=== PATIENT | female | born 2000 | race African-American/Black ===

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

== ENCOUNTER 2018-03-06 16:05 | Emergency (ER) | payer OTHER ==
[2018-03-06] MEDS ORDERED: NS 0.9% 1000 ML* 1,000 ML IV ONE (17:55)
[2018-03-06] MEDS ORDERED: Morphine VIAL* 10 MG/ML 1 ML VIAL IV ONE (17:55)
[2018-03-06] MEDS ORDERED: Ondansetron INJ* 2 MG/ML VIAL IV ONE (17:55)
[2018-03-06 18:04] LABS: ABS Basophils 0 10^3/ul (0-0.2); ABS Eosinophils 0.1 10^3/ul (0-0.6); ABS Lymphocytes 2.4 10^3/ul (1.0-4.8); ABS Monocytes 0.5 10^3/ul (0-0.8); ABS Neutrophils 4.5 10^3/ul (1.5-7.7); ABS Nucleated RBC 0 10^3/ul; Eosinophil % 1.1 % (0-6); Hematocrit 37 % (35-47); Hemoglobin 12.3 g/dl (12.0-16.0); Lymphocyte % 31.7 % (25-47); Mean Corpuscular HGB Conc 33 g/dl (31-36); Mean Corpuscular Hemoglobin 30 pg (27-31); Mean Corpuscular Volume 90 fL (80-97); Nucleated Red Blood Cells % 0; Platelet Count 193 10^3/ul (150-450); Red Blood Count 4.16 10^6/ul (4.00-5.40); Red Cell Distribution Width 14 % (10.5-15); White Blood Count 7.6 10^3/ul (3.5-10.8)
[2018-03-06] MEDS ORDERED: Morphine INJ* 4 MG/ML 1 ML SYRINGE (NEW SYRINGE VERSION) ONE (18:05)
[2018-03-06 18:21] LABS: EGFR Non-African American 80.7 (>60)
[2018-03-06] MEDS ORDERED: Iohexol 300* (CONTRAST) 10 ML SDV IV ONE (18:29)
--- NOTE | 2018-03-06 19:42 | RAD ---
EXAM: CT Abdomen and Pelvis With Intravenous Contrast CLINICAL HISTORY: 17 years old, female; Pain; Abdominal pain; Epigastric; Additional info: Epigastric pain, elevated panc enzymes TECHNIQUE: Axial computed tomography images of the abdomen and pelvis with intravenous contrast. All CT scans at this facility use at least one of these dose optimization techniques: automated exposure control; mA and/or kV adjustment per patient size (includes targeted exams where dose is matched to clinical indication); or iterative reconstruction. Coronal and sagittal reformatted images were created and reviewed. CONTRAST: 79 mL of OMNIPAQUE 300 administered intravenously. COMPARISON: No relevant prior studies available. FINDINGS: Lung bases: There is mild bibasilar atelectatic change or scarring. ABDOMEN: Liver: There is mild hepatomegaly. Gallbladder and bile ducts: Unremarkable. No calcified stones. No ductal dilation. Pancreas: Unremarkable. No mass. No ductal dilation. Spleen: Unremarkable. No splenomegaly. Adrenals: Unremarkable. No mass. Kidneys and ureters: Unremarkable. No solid mass. No hydronephrosis. Stomach and bowel: Unremarkable. No obstruction. No mucosal thickening. PELVIS: Appendix: The appendix is unremarkable and seen best on axial image 52 of series 2. Bladder: Unremarkable. No mass. Reproductive: There is a 2 cm involuting follicle or cyst of the right ovary. ABDOMEN and PELVIS: Intraperitoneal space: Unremarkable. No free air. No significant fluid collection. Bones/joints: No acute fracture. No dislocation. Soft tissues: Unremarkable. Vasculature: Unremarkable. No abdominal aortic aneurysm. Lymph nodes: Unremarkable. No enlarged lymph nodes. IMPRESSION: 1. There is a 2 cm involuting follicle or cyst of the right ovary. 2. No other acute CT pathology.
--- NOTE | 2018-03-06 19:56 | ED ---
Abdominal Pain/Female - HPI Summary HPI Summary: Patient complains of diffuse abdominal pain worse at epigastrium and right upper quadrant times one year. Pain has been progressive, radiates to lower back, occurs a few times a week, is worse after meals often, accompanied by nausea, and alternating constipation and diarrhea. Patient states she had elevated pancreatic enzymes on recent blood work done at [facility]. States previously diagnosed with IBS. Denies fever, cough, sore throat, CP, N /V/D, change in urine, vaginal symptoms. Medical history is none. Abdominal/ pelvic surgical history is none. Nonsmoker, denies regular EtOH, recreational drugs. - History of Current Complaint Chief Complaint: EDAbdPain Stated Complaint: ABD PAIN Time Seen by Provider: 03/06/18 17:28 Hx Obtained From: Patient ?: No Onset/Duration: Gradual Onset, Lasting Weeks Timing: Intermittent Episode Lasting Severity Initially: Mild Severity Currently: Mild Pain Intensity: 2 Pain Scale Used: 0-10 Numeric Location: Diffuse, Epigastric Radiates to: Back Aggravating Factor(s): Food Alleviating Factor(s): Nothing Associated Signs and Symptoms: Positive: Back Pain, Nausea Allergies/Adverse Reactions: Allergies Allergy/AdvReac Type Severity Reaction Status Date / Time No Known Allergies Allergy Verified 03/06/18 17:32 PMH/Surg Hx/FS Hx/Imm Hx Endocrine/Hematology History: Denies: Hx Anticoagulant Therapy, Hx Diabetes Cardiovascular History: Denies: Hx Hypertension Respiratory History: Denies: Hx Asthma Psychiatric History: Reports: Hx Anxiety, Hx Depression - Surgical History Surgery Procedure, Year, and Place: none - Immunization History Immunizations Up to Date: Yes Infectious Disease History: No Infectious Disease History: Denies: Traveled Outside the [place] in Last 30 Days - Family History Known Family History: Positive: None - Social History Alcohol Use: None Substance Use Type: Reports: None Smoking Status (MU): Never Smoked Tobacco Review of Systems Constitutional: Negative Eyes: Negative ENT: Negative Cardiovascular: Negative Respiratory: Negative Positive: Abdominal Pain, Nausea Genitourinary: Negative Skin: Negative Neurological: Negative Psychological: Normal All Other Systems Reviewed And Are Negative: Yes Physical Exam - Summary Physical Exam Summary: Abdomen diffusely tender. No right lower quadrant tenderness. Triage Information Reviewed: Yes Vital Signs On Initial Exam: Initial Vitals Temp Pulse Resp BP Pulse Ox 97.2 F 80 16 108/64 100 03/06/18 16:41 03/06/18 16:41 03/06/18 16:41 03/06/18 16:41 03/06/18 16:41 Vital Signs Reviewed: Yes Appearance: Positive: Well-Appearing Skin: Positive: Warm Head/Face: Positive: Normal Head/Face Inspection Neck: Positive: Supple Respiratory/Lung Sounds: Positive: Clear to Auscultation Cardiovascular: Positive: Normal Abdomen Description: Positive: Other: Musculoskeletal: Positive: Normal Neurological: Positive: Normal Psychiatric: Positive: Normal AVPU Assessment: Alert - [place] Coma Scale Best Eye Response: 4 - Spontaneous Best Motor Response: 6 - Obeys Commands Best Verbal Response: 5 - Oriented Coma Scale Total: 15 Diagnostics - Vital Signs Vital Signs Temp Pulse Resp BP Pulse Ox 03/06/18 18:15 16 03/06/18 16:41 97.2 F 80 16 100 - Laboratory Lab Results: Lab Results 03/06/18 03/06/18 03/06/18 Range/Units 17:58 17:58 17:58 WBC 7.6 (3.5-10.8) 10^3/ul RBC 4.16 (4.00-5.40) 10^6/ul Hgb 12.3 (12.0-16.0) g/dl Hct 37 (35-47) % MCV 90 (80-97) fL MCH 30 (27-31) pg MCHC 33 (31-36) g/dl RDW 14 (10.5-15) % Plt Count 193 (150-450) 10^3/ul MPV 8.0 (7.4-10.4) um3 Neut % (Auto) 59.9 (38-83) % Lymph % (Auto) 31.7 (25-47) % Terry % (Auto) 7.1 H (0-7) % Eos % (Auto) 1.1 (0-6) % Baso % (Auto) 0.2 (0-2) % Absolute Neuts (auto) 4.5 (1.5-7.7) 10^3/ul Absolute Lymphs (auto) 2.4 (1.0-4.8) 10^3/ul Absolute Monos (auto) 0.5 (0-0.8) 10^3/ul Absolute Eos (auto) 0.1 (0-0.6) 10^3/ul Absolute Basos (auto) 0 (0-0.2) 10^3/ul Absolute Nucleated RBC 0 10^3/ul Nucleated RBC % 0 Sodium 138 (135-145) mmol/L Potassium 4.3 (3.5-5.0) mmol/L Chloride 108 (101-111) mmol/L Carbon Dioxide 27 (22-32) mmol/L Anion Gap 3 (2-11) mmol/L BUN 12 (6-24) mg/dL Creatinine 0.90 (0.51-0.95) mg/dL Est GFR ( Amer) 97.6 (>60) Est GFR (Non-Af Amer) 80.7 (>60) BUN/Creatinine Ratio 13.3 (8-20) Glucose 96 (70-100) mg/dL Lactic Acid 0.6 (0.5-2.0) mmol/L Calcium 9.3 (8.6-10.3) mg/dL Total Bilirubin 0.30 (0.2-1.0) mg/dL AST 15 (13-39) U/L ALT 11 (7-52) U/L Alkaline Phosphatase 36 (34-104) U/L C-Reactive Protein < 1.00 (<8.01) mg/L Total Protein 7.1 (6.4-8.9) g/dL Albumin 4.1 (3.2-5.2) g/dL Globulin 3.0 (2-4) g/dL Albumin/Globulin Ratio 1.4 (1-3) Lipase 48 (11.0-82.0) U/L Beta HCG, Quant < 0.60 mIU/mL Result Diagrams: 03/06/18 17:58 03/06/18 17:58 Lab Statement: Any lab studies that have been ordered have been reviewed, and results considered in the medical decision making process. - CT ab/pel CT Interpretation: No Acute Changes CT Interpretation Completed By: Radiologist - Ultrasound No standard instances Ultrasound Interpretation: No Acute Changes - US gallbladder Ultrasound Interpretation Completed By: Radiologist Abdominal Pain Fem Course/Dx - Course Course Of Treatment: Patient complains of diffuse abdominal pain worse at epigastrium and right upper quadrant times one year. Pain has been progressive , radiates to lower back, occurs a few times a week, is worse after meals often , accompanied by nausea, and alternating constipation and diarrhea. Patient states she had elevated pancreatic enzymes on recent blood work done at [facility]. States previously diagnosed with IBS. Denies fever, cough, sore throat, CP, N/V/D, change in urine, vaginal symptoms. Medical history is none. Abdominal/pelvic surgical history is none. Nonsmoker, denies regular EtOH, recreational drugs. Physical exam: Abdomen diffusely tender. No right lower quadrant tenderness. CT abdomen with contrast negative. Gallbladder ultrasound negative. Labs unremarkable. Vital signs within normal limits. Possible gastritis versus IBS. Rx for Prilosec. Follow up with GI. - Diagnoses Provider Diagnoses: Abdominal pain Discharge - Sign-Out/Discharge Documenting (check all that apply): Patient Departure - Discharge Plan Condition: Stable Disposition: HOME Prescriptions: Omeprazole CAP* [Prilosec CAP* 20 MG] 20 mg PO DAILY 60 Days #60 Patient Education Materials: Irritable Bowel Syndrome (ED), Chronic Abdominal Pain (ED) Referrals: No Primary Care Phys,NOPCP [Primary Care Provider] - Umair Novoa MD [Medical Doctor] - Additional Instructions: Take Prilosec daily. If symptoms do not improve after a month follow-up with GI Dr. Pacheco. Return to the ED for any new or worsening symptoms - Billing Disposition and Condition Condition: STABLE Disposition: Home
[2018-03-06 20:02] LABS: Urine Appearance Clear; Urine Blood Negative (Negative); Urine Color Yellow; Urine Ketones Negative (Negative); Urine Protein Negative (Negative); Urine Specific Gravity 1.017 (1.010-1.030); Urine Urobilinogen Negative (Negative)
[2018-03-06 20:03] LABS: Urine Red Blood Cell Absent (Absent); Urine White Blood Cell Trace(0-5/hpf) (Absent)
--- NOTE | 2018-03-06 20:06 | RAD ---
EXAM: US Abdomen Limited, Right Upper Quadrant CLINICAL HISTORY: 17 years old, female; Pain; Abdominal pain; Epigastric; Additional info: Epigastric, ruq pain after meals TECHNIQUE: Real-time ultrasound of the right upper quadrant with image documentation. COMPARISON: A/P W CT ABD/PEL W 03/06/2018 7:03 PM FINDINGS: Liver: There is borderline hepatomegaly with liver length 17.0 cm with normal antegrade flow in the hepatic portal vein and no mass lesion. No intrahepatic bile duct dilation. Gallbladder: Unremarkable. No gallstones. Negative sonographic Arriaga's sign. Common bile duct: Unremarkable as visualized. No stones. No dilation. Pancreas: The visualized portion of the pancreas is unremarkable with detail obscured by overlying bowel gas. Right kidney: Unremarkable. No stones. No solid mass. No hydronephrosis. IMPRESSION: No acute findings.
[2018-03-06] MEDS ORDERED: Omeprazole CAP* 20 MG PO ONE (20:18)
[2018-03-06 20:22] VITALS: BP 118/77
[2018-03-06] MEDS ORDERED: Lidocaine 2% VISCOUS* 15 ML UDC PO ONE (20:26)
[2018-03-06] MEDS ORDERED: Al Hydrox/Mg Hydrox/Simet LIQ* 30 ML UDC PO ONE (20:27)
== END 2018-03-06 20:45 | disposition home or self-care (01) ==
LOC: ED 16:05
DX: R10.9 Unspecified abdominal pain (principal); M54.9 Dorsalgia, unspecified; R11.0 Nausea
CPT/HCPCS: 36415; 74177; 76705; 80053; 81003; 81015; 82150; 83605; 83690; 84702; 85025; 86140; 87086; 96374; 96375; 99283; A9270-GY; J2270; J2405; Q9967

== ENCOUNTER → 2018-07-07 09:14 | Emergency (ER) | payer OTHER ==
[~2018-07-07 09:14] MED LIST: Ibuprofen TAB* 600 MG PO ONE
[2018-07-07 10:58] LABS: ALT 16 U/L (7-52); AST 20 U/L (13-39); Albumin 4.4 g/dL (3.2-5.2); Albumin/Globulin Ratio 1.4 (1-3); Alkaline Phosphatase 46 U/L (34-104); Anion Gap 5 mmol/L (2-11); BUN/Creatinine Ratio 14.3 (8-20); Blood Urea Nitrogen 13 mg/dL (6-24); C Reactive Protein < 1.00 mg/L (<8.01); CO2 Carbon Dioxide 27 mmol/L (22-32); Calcium 9.7 mg/dL (8.6-10.3); Chloride 107 mmol/L (101-111); EGFR African American 96.4 (>60); EGFR Non-African American 79.6 (>60); Globulin 3.1 g/dL (2-4); Glucose 93 mg/dL (70-100); Sodium 139 mmol/L (135-145); Total Protein 7.5 g/dL (6.4-8.9)
[2018-07-07 11:01] LABS: ABS Basophils 0 10^3/ul (0-0.2); ABS Eosinophils 0 10^3/ul (0-0.6); ABS Lymphocytes 1.3 10^3/ul (1.0-4.8); ABS Monocytes 0.2 10^3/ul (0-0.8); ABS Neutrophils 1.3 10^3/ul (1.5-7.7); ABS Nucleated RBC 0 10^3/ul; Eosinophil % 0.8 %; Hematocrit 37 % (35-47); Hemoglobin 11.9 g/dl (12.0-16.0); Mean Corpuscular HGB Conc 32 g/dl (31-36); Mean Corpuscular Hemoglobin 28 pg (27-31); Mean Corpuscular Volume 88 fL (80-97); Mean Platelet Volume 8.2 fL (7.4-10.4); Nucleated Red Blood Cells % 0; Platelet Count 151 10^3/ul (150-450); Red Blood Count 4.23 10^6/ul (4.00-5.40); Red Cell Distribution Width 14 % (10.5-15); White Blood Count 2.9 10^3/ul (3.5-10.8)
[2018-07-07 11:04] LABS: HCG Pregnancy < 0.60 mIU/mL
--- NOTE | 2018-07-07 14:39 | ED ---
HPI Chest Pain - HPI Summary HPI Summary: A 17 y/o female presents to the ED c/o chest pain since she woke up this morning. According to the patient, when she got out of bed, she felt "paralyzed " and cramping sensation in her chest and upper back. Sometimes she would feel some sharp pains. She stated that it was difficult to breath and taking deep breaths aggravated the symptoms. She stated that she feels much better, but feels sore as if she vomited. She denies any fevers, chills, vomiting, nausea, or any recent URI infections. PMHx of asthma, but no cardiac issues. - History of Current Complaint Chief Complaint: EDChestPainROMI Time Seen by Provider: 07/07/18 14:30 Hx Obtained From: Patient Onset/Duration: Started Hours Ago, Still Present Timing: Constant Initial Severity: Moderate Current Severity: Moderate Pain Intensity: 6 Pain Scale Used: 0-10 Numeric Chest Pain Location: Diffuse Chest Pain Radiates: Yes Chest Pain Radiates To:: Back Character: Sharp/Stabbing, Tightness Aggravating Factor(s): Deep Breaths Alleviating Factor(s): Nothing Associated Signs and Symptoms: Positive: Chest Pain, Shortness of Breath. Negative: Fever, Chills, Nausea, Vomiting, URI - Allergy/Home Medications Allergies/Adverse Reactions: Allergies Allergy/AdvReac Type Severity Reaction Status Date / Time No Known Allergies Allergy Verified 07/07/18 09:18 Home Medications: Home Medications busPIRone TAB* [Buspar TAB*] 5 mg PO DAILY 07/07/18 [History Confirmed 07/07/18] PMH/Surg Hx/FS Hx/Imm Hx Endocrine/Hematology History: Denies: Hx Anticoagulant Therapy, Hx Diabetes Cardiovascular History: Denies: Hx Congestive Heart Failure, Hx Hypertension Respiratory History: Reports: Hx Asthma Psychiatric History: Reports: Hx Anxiety, Hx Depression - Surgical History Surgery Procedure, Year, and Place: TONSILLECTOMY Infectious Disease History: No Infectious Disease History: Denies: Traveled Outside the [place] in Last 30 Days - Family History Known Family History: Negative: Hypertension, Diabetes - Social History Alcohol Use: None Substance Use Type: Reports: None Hx Tobacco Use: No Smoking Status (MU): Never Smoked Tobacco Review of Systems Negative: Fever, Chills Positive: Chest Pain Positive: Shortness Of Breath Negative: Vomiting, Nausea Positive: Other - POSITIVE: BACK PAIN All Other Systems Reviewed And Are Negative: Yes Physical Exam - Summary Physical Exam Summary: VITAL SIGNS: Reviewed. GENERAL: Patient is a well-developed and nourished female who is lying comfortable in the stretcher. Patient is not in any acute respiratory distress. HEAD AND FACE: No signs of trauma. No ecchymosis, hematomas or skull depressions. No sinus tenderness. EYES: PERRLA, EOMI x 2, No injected conjunctiva, no nystagmus. EARS: Hearing grossly intact. Ear canals and tympanic membranes are within normal limits. MOUTH: Oropharynx within normal limits. NECK: Supple, trachea is midline, no adenopathy, no JVD, no carotid bruit, no c- spine tenderness, neck with full ROM. CHEST: Symmetric, reproducible chest pain on the right side. LUNGS: Clear to auscultation bilaterally. No wheezing or crackles. CVS: Regular rate and rhythm, S1 and S2 present, no murmurs or gallops appreciated. ABDOMEN: Soft, non-tender. No signs of distention. No rebound no guarding, and no masses palpated. Bowel sounds are normal. EXTREMITIES: FROM in all major joints, no edema, no cyanosis or clubbing. NEURO: Alert and oriented x 3. No acute neurological deficits. Speech is normal and follows commands. SKIN: Dry and warm Triage Information Reviewed: Yes Vital Signs On Initial Exam: Initial Vitals Temp Pulse Resp BP Pulse Ox 97.1 F 70 16 136/93 97 07/07/18 09:16 07/07/18 09:16 07/07/18 09:16 07/07/18 09:16 07/07/18 09:16 Vital Signs Reviewed: Yes Diagnostics - Vital Signs Vital Signs Temp Pulse Resp BP Pulse Ox 07/07/18 12:44 98.5 F 59 16 120/73 99 07/07/18 11:47 98.5 F 58 16 126/72 100 07/07/18 09:16 97.1 F 70 16 136/93 97 - Laboratory Lab Results: Lab Results 07/07/18 07/07/18 07/07/18 Range/Units 09:37 09:37 12:19 WBC 2.9 L (3.5-10.8) 10^3/ul RBC 4.23 (4.00-5.40) 10^6/ul Hgb 11.9 L (12.0-16.0) g/dl Hct 37 (35-47) % MCV 88 (80-97) fL MCH 28 (27-31) pg MCHC 32 (31-36) g/dl RDW 14 (10.5-15) % Plt Count 151 (150-450) 10^3/ul MPV 8.2 (7.4-10.4) fL Neut % (Auto) 46.1 % Lymph % (Auto) 44.0 % Door % (Auto) 8.7 % Eos % (Auto) 0.8 % Baso % (Auto) 0.4 % Absolute Neuts (auto) 1.3 L (1.5-7.7) 10^3/ul Absolute Lymphs (auto) 1.3 (1.0-4.8) 10^3/ul Absolute Monos (auto) 0.2 (0-0.8) 10^3/ul Absolute Eos (auto) 0 (0-0.6) 10^3/ul Absolute Basos (auto) 0 (0-0.2) 10^3/ul Absolute Nucleated RBC 0 10^3/ul Nucleated RBC % 0 D-Dimer, Quantitative < 200 (Less Than 230) ng/mL Sodium 139 (135-145) mmol/L Potassium 4.0 (3.5-5.0) mmol/L Chloride 107 (101-111) mmol/L Carbon Dioxide 27 (22-32) mmol/L Anion Gap 5 (2-11) mmol/L BUN 13 (6-24) mg/dL Creatinine 0.91 (0.51-0.95) mg/dL Est GFR ( Amer) 96.4 (>60) Est GFR (Non-Af Amer) 79.6 (>60) BUN/Creatinine Ratio 14.3 (8-20) Glucose 93 (70-100) mg/dL Calcium 9.7 (8.6-10.3) mg/dL Total Bilirubin 0.30 (0.2-1.0) mg/dL AST 20 (13-39) U/L ALT 16 (7-52) U/L Alkaline Phosphatase 46 (34-104) U/L C-Reactive Protein < 1.00 (<8.01) mg/L Total Protein 7.5 (6.4-8.9) g/dL Albumin 4.4 (3.2-5.2) g/dL Globulin 3.1 (2-4) g/dL Albumin/Globulin Ratio 1.4 (1-3) Beta HCG, Quant < 0.60 mIU/mL Result Diagrams: 07/07/18 09:37 07/07/18 09:37 Lab Statement: Any lab studies that have been ordered have been reviewed, and results considered in the medical decision making process. - Radiology CXR Radiology Interpretation Completed By: Radiologist Summary of Radiographic Findings: NO ACTIVE CARDIOPULMONARY DISEASE. ED PHYSICIAN REVIEWED THIS RADIOLOGY REPORT. - EKG 0920 Cardiac Rate: NL - 64 BPM EKG Rhythm: Sinus Rhythm - 64 BPM Summary of EKG Findings: no ST elevations. Chest Pain Course/Dx - Course Assessment/Plan: A 17 y/o female presents to the ED c/o chest pain since she woke up this morning. According to the patient, when she got out of bed, she felt "paralyzed" and cramping sensation in her chest and upper back. Sometimes she would feel some sharp pains. She stated that it was difficult to breath and taking deep breaths aggravated the symptoms. She stated that she feels much better, but feels sore as if she vomited. She denies any fevers, chills, vomiting, nausea, or any recent URI infections. PMHx of asthma, but no cardiac issues. Test results without any significant abnormality. EKG shows no ST elevations. Chest x-ray shows no acute cardiopulmonary disease. D-dimer was negative therefore no suspicion for PE. The patient has reproducible chest pain therefore the patient was given ibuprofen and the symptoms improved. She will be discharged home with follow-up with PCP. I discussed all the findings and test results with the patient. Patient was instructed to return to the emergency room immediately if any of the symptoms return or worsens. Plan of care was discussed with the patient and understands and agrees. All questions were answered at patient satisfaction. There were no further complaints or concerns. Lung exam before discharge: CTA B/L. Good air exchange. No wheezing or crackles heard. CVS: S1 and S2 present. No murmurs appreciated. Patient is alert and oriented x 3. Patient is hemodynamically stable. Patient will be discharged home with follow up PCP in the next 2-3 days - Chest Pain Differential Diagnosis/HQI/PQRI: ACS, Chest Wall, Lower Respiratory Infection - Diagnoses Provider Diagnoses: Chest pain, atypical Discharge - Sign-Out/Discharge Documenting (check all that apply): Patient Departure - DISCHARGE - Discharge Plan Condition: Stable Disposition: HOME Prescriptions: Naproxen TAB* [Naprosyn 250 mg TAB*] 500 mg PO BID PRN #20 tab PRN Reason: Pain Patient Education Materials: Chest Pain (ED) Referrals: [facility] [place] PHYSICIAN REFERRAL [Outside] - 3 Days [facility] [Outside] - 3 Days Additional Instructions: FOLLOW UP WITH PRIMARY CARE PROVIDER IN 3 DAYS. FOLLOW UP WITH YOUR PRIMARY CARE PROVIDER WITHIN ONE WEEK FOR HIGH BLOOD PRESSURE NOTED TODAY. RETURN TO THE ED FOR ANY NEW OR WORSENING SYMPTOMS. - Billing Disposition and Condition Condition: STABLE Disposition: Home - Attestation Statements Document Initiated by Elba: Yes Documenting Scribe: Tate Avelar Provider For Whom Elba is Documenting (Include Credential): Ranjit Steward MD Scribe Attestation: Tate Hurley scribed for Ranjit Steward MD on 07/07/18 at 1849. Scribe Documentation Reviewed: Yes Provider Attestation: The documentation as recorded by the Tate ruiz accurately reflects the service I personally performed and the decisions made by Ranjit lara MD Status of Scribe Document: Viewed Attestations Scribe Attestation: Tate Avelar User Type: Provider
[2018-07-07 15:00] VITALS: BP 112/67
== END | disposition home or self-care (01) ==
LOC: ED 09:14
DX: R07.89 Other chest pain (principal); R06.02 Shortness of breath; M54.9 Dorsalgia, unspecified; F41.9 Anxiety disorder, unspecified
CPT/HCPCS: 36415; 71046; 80053; 84702; 85025; 85379; 86140; 93005; 99282; A9270-GY